=== PATIENT | male | born 1950 | race Two or more races ===

== ENCOUNTER 2020-06-10 22:11 | Emergency (ER) | payer OTHER ==
[~2020-06-10] VITALS: Ht 172.7 cm; Wt 86.2 kg
[2020-06-10] MEDS ORDERED: IRBESARTAN150 MG PO (22:42)
[2020-06-10] MEDS ORDERED: ZYLOPRIM300 MG PO (22:42)
[2020-06-10] MEDS ORDERED: LIPITOR20 MG PO (22:42)
[2020-06-10] MEDS ORDERED: OMEPRAZOLE MAGN20 MG PO (22:43)
[2020-06-10] MEDS ORDERED: ECOTRIN81 MG PO (22:43)
[2020-06-10] MEDS ORDERED: BUPROPION XL450 MG PO (22:43)
[2020-06-10] MEDS ORDERED: CENTURY ULTIMA1 EAC1 PO (22:44)
[2020-06-10] MEDS ORDERED: ADCIRCA20 MG PO (22:44)
[2020-06-10] MEDS ORDERED: PEPCID AC10 MG PO (22:44)
[2020-06-10] MEDS ORDERED: [UNRECOGNIZED DRUG - OTHER] PO (22:45)
== END 2020-06-10 23:47 | disposition home or self-care (01) ==
LOC: ER 22:11
DX: S50.872A Other superficial bite of left forearm, initial encounter (principal); W54.0XXA Bitten by dog, initial encounter; Y93.01 Activity, walking, marching and hiking; Y92.413 State road as the place of occurrence of the external cause; Y99.8 Other external cause status